=== PATIENT | male | born 1960 | race Two or more races ===

== ENCOUNTER → 2016-04-03 | Day surgery (SDC) | payer BC ==
[2016-03-31 15:39] VITALS: BMI 28.1
[~2016-04-03] MED LIST: ACETAMINOPHEN TAB 500 MG TAB PO ONE; BUPIVACAINE (PF) 0.25% 30 ML VIAL SQ ONE; DEXAMETHASONE SOD PHOS (MDV) 100 MG/10 ML VIAL ONE; DEXAMETHASONE SOD PHOSPHATE 10 MG/ML 1 ML VIAL IV ONE; DEXAMETHASONE SOD PHOSPHATE 4 MG/ML 1 ML VIAL IV ONE; FAMOTIDINE 20 MG/2 ML VIAL IV ONE; HYDROmorphone 1 MG/ML 1 ML SYRINGE IVP PRN; LACTATED RINGERS 1,000 ML IV SCH; LIDOCAINE 1% 20 ML VIAL (10MG/ML) FOR IV START INTRADERMA ONE; LIDOCAINE 1% INJ 10MG/ML (20 ML MDV) ONE; LIDOCAINE 1%-EPI 1:100,000 20 ML VIAL SQ ONE; MIDAZOLAM 2 MG/2 ML VIAL IV PRN; MIDAZOLAM 2 MG/2 ML VIAL ONE; ONDANSETRON 4 MG/2 ML VIAL IVP ONE; PROPOFOL 10 MG/ML 20 ML VIAL IV ONE; SUCCINYLCHOLINE CHLORIDE 100 MG/5 ML SYR IV ONE; ceFAZolin 2 GM in SODIUM CHLORIDE 0.9% 100 ML IVPB ONE; ePHEDrine 50 MG/ML 1 ML AMP ONE; fentaNYL (PF) 50 MCG/ML 2 ML AMP ONE; metroNIDAZOLE-NS PMX 500 MG in SALINE 1 100ML.BAG IVPB ONE
[2016-04-03 10:15] VITALS: RESP 16; TEMP 97.2
--- NOTE | 2016-04-03 10:19 | P.OP ---
Date of Procedure: 04/03/16 Preoperative Diagnosis: Left tongue lichen planus with glossitis Postoperative Diagnosis: Same Procedure(s) Performed: Laser vaporization of left lateral tongue lichen planus utilizing a CO2 laser with a 4 W setting Anesthesia: ALLEN Surgeon: Ze Dawson Estimated Blood Loss (ml): 0 Pathology: none sent Condition: stable Disposition: PACU Indications for Procedure: Patient has had persistent left lateral glossitis some lichen planus that was not amenable to conservative treatment. Laser vaporization of this area is recommended. Operative Findings: Fairly large area of lichen planus left lateral tongue with associated glossitis. Description of Procedure: This patient was taken to the operative room and placed in the supine position. A general inhalation anesthetic was administered the patient and intubated with a laser endotracheal tube. A bite block was placed and the mouth was opened. The tongue was retracted and the left lateral aspect of the tongue was exposed. Utilizing a 4 W setting on a CO2 laser utilizing a coherent laser, the left lateral aspect of the tongue was laser ablated. We ablated the entire surface of the affected area of the tongue completely. No bleeding was encountered. Lidocaine and Marcaine was injected into the left lateral tongue for postoperative analgesia. The patient tolerated this well and follow-up will be in the office in 1 week. Patient is to contact me if any problems arise in the interim.
[2016-04-03 11:06] VITALS: BP 138/83; PULSE 85
== END | disposition home or self-care (01) ==
LOC: OR 07:31
PROVIDERS: ATTEND Otolaryngology
DX: L43.9 Lichen planus, unspecified (principal); K14.0 Glossitis; K13.21 Leukoplakia of oral mucosa, including tongue; I10 Essential (primary) hypertension; E78.5 Hyperlipidemia, unspecified; Z87.891 Personal history of nicotine dependence; Z79.899 Other long term (current) drug therapy; Z88.2 Allergy status to sulfonamides; Z88.8 Allergy status to other drugs, medicaments and biological substances
CPT/HCPCS: 41599; J2250; J1100 ×2; J0690; J2405; J2001; J3010; J0330; J2704

== ENCOUNTER 2023-02-20 08:59 | Day surgery (SDC) | payer BC ==
[2023-02-18 14:19] VITALS: BMI 26.4
[~2023-02-20 08:59] MED LIST changes: -ACETAMINOPHEN TAB 500 MG TAB PO ONE; -BUPIVACAINE (PF) 0.25% 30 ML VIAL SQ ONE; -DEXAMETHASONE SOD PHOS (MDV) 100 MG/10 ML VIAL ONE; -DEXAMETHASONE SOD PHOSPHATE 10 MG/ML 1 ML VIAL IV ONE; -DEXAMETHASONE SOD PHOSPHATE 4 MG/ML 1 ML VIAL IV ONE; -FAMOTIDINE 20 MG/2 ML VIAL IV ONE; -HYDROmorphone 1 MG/ML 1 ML SYRINGE IVP PRN; -LIDOCAINE 1% 20 ML VIAL (10MG/ML) FOR IV START INTRADERMA ONE; -LIDOCAINE 1% INJ 10MG/ML (20 ML MDV) ONE; -LIDOCAINE 1%-EPI 1:100,000 20 ML VIAL SQ ONE; -MIDAZOLAM 2 MG/2 ML VIAL IV PRN; -MIDAZOLAM 2 MG/2 ML VIAL ONE; -ONDANSETRON 4 MG/2 ML VIAL IVP ONE; -PROPOFOL 10 MG/ML 20 ML VIAL IV ONE; -SUCCINYLCHOLINE CHLORIDE 100 MG/5 ML SYR IV ONE; -ceFAZolin 2 GM in SODIUM CHLORIDE 0.9% 100 ML IVPB ONE; -ePHEDrine 50 MG/ML 1 ML AMP ONE; -fentaNYL (PF) 50 MCG/ML 2 ML AMP ONE; -metroNIDAZOLE-NS PMX 500 MG in SALINE 1 100ML.BAG IVPB ONE
[2023-02-20] MEDS ORDERED: LACTATED RINGERS 1,000 ML IV ONE (09:15)
[2023-02-20 09:31] VITALS: TEMP 97.6
[2023-02-20] MEDS ORDERED: LIDOCAINE 1% INJ 10MG/ML (20 ML MDV) ONE (09:55)
[2023-02-20] MEDS ORDERED: PROPOFOL 10 MG/ML 20 ML VIAL IV ONE (09:55)
--- NOTE | 2023-02-20 10:14 | P.PCN ---
Date of Procedure: 02/20/23 Procedure(s) Performed: Brief history: Patient is a pleasant 63-year-old male scheduled for an elective upper endoscopy as well as colonoscopy as a part of evaluation of GERD and screening for colon cancer Procedure performed: Esophagogastroduodenoscopy with biopsy Colonoscopy with snare polypectomy Preoperative diagnosis: GERD Screening for colon cancer Anesthesia: MAC Procedure: After informed consent was obtained from the patient was brought into the endoscopy unit and IV sedation was administered by anesthesia under continuous monitoring. Initially upper endoscopy was done. The Olympus GF 160 video endoscope was inserted inserted into the mouth and esophagus intubated without any difficulty and was gradually advanced into the stomach and duodenum and carefully examined. The bulb and second part of the duodenum appeared normal. The scope was then withdrawn into the stomach adequately insufflated with air and upon careful examination the antrum had mild gastritis and biopsies were done from this area. Small polyps noted in the gastric body which were biopsied. Rest of the body, cardia and fundus appeared normal. The scope was then withdrawn into the esophagus. The GE junction was located at 40 cm to the incisors. It appeared regular with no erythema erosions or ulcerations. Rest of the esophagus appeared normal. Patient tolerated the procedure well. At this time the patient continued to remain sedation. Initial digital rectal examination was normal. Olympus CF 160 video colonoscope was then inserted into the rectum and gradually advanced to the cecum without any difficulty. Careful examination was performed as the scope was gradually being withdrawn. The prep was excellent. The cecum, ascending colon, appeared normal. In the transverse colon there was a 5 mm sessile polyp removed by cold snare polypectomy. Rest of the transverse colon, descending colon, sigmoid colon and rectum appeared normal. Retroflexion was performed in the rectum and grade 2 internal hemorrhoids were noted. Patient tolerated the procedure well. Impression: 1. Upper Endoscopy revealed mild antral gastritis and mild distal small gastric polyps but no evidence of esophagitis or Abernathy's esophagus 2. Colonoscopy revealed a 5 mm proximal colon polyp status post snare polypectomy and grade 2 internal hemorrhoids Recommendations: Findings of this examination were discussed with the patient as well as esophagus. He was advised to follow with the biopsy results. Continue with current medications and follow antireflux measures. If the biopsy results adenoma he can have a repeat colonoscopy in 5 years.
[2023-02-20 10:44] VITALS: BP 155/89; PULSE 60
[2023-02-20 10:45] VITALS: RESP 20
== END 2023-02-20 10:58 | disposition home or self-care (01) ==
LOC: ORWHC2ENDO 08:59
PROVIDERS: ATTEND Internal Medicine Gastroenterology
DX: Z12.11 Encounter for screening for malignant neoplasm of colon (principal); D12.3 Benign neoplasm of transverse colon; K29.50 Unspecified chronic gastritis without bleeding; K21.9 Gastro-esophageal reflux disease without esophagitis; K64.1 Second degree hemorrhoids; K31.7 Polyp of stomach and duodenum; Z88.2 Allergy status to sulfonamides; Z79.82 Long term (current) use of aspirin; Z79.899 Other long term (current) drug therapy; I25.10 Atherosclerotic heart disease of native coronary artery without angina pectoris; I10 Essential (primary) hypertension; E78.5 Hyperlipidemia, unspecified; Z95.5 Presence of coronary angioplasty implant and graft; Z98.890 Other specified postprocedural states
CPT/HCPCS: 88305; 45385; 43239; J2001; J2704